=== PATIENT | male | born 1955 | race Caucasian/White ===

== ENCOUNTER 2017-12-19 01:30 | Emergency (ER) | payer SELFPAY ==
[~2017-12-19] VITALS: Ht 182.9 cm; Wt 70.0 kg
[~2017-12-19 01:30] MED LIST: CIPR500T2 PO; CIPR750T10 PO; METR-1 PO; TRAM50 PO
[2017-12-19 01:33] VITALS: BP 97/65; PULSE 66; RESP 18; TEMP 98.1; O2SAT 97
--- NOTE | 2017-12-19 02:39 | RADRPT ---
EXAM DATE/TIME: 12/19/2017 02:19 [place] COMPARISON: No previous studies available for comparison. INDICATIONS : Evaluate for foreign body. Left forearm went through glass. MEDICAL HISTORY : None. SURGICAL HISTORY : None. ENCOUNTER: Initial ACUITY: 1 day PAIN SCORE: 4/10 LOCATION: Left upper extremity FINDINGS: Two view examination of the left forearm demonstrates no evidence of fracture or dislocation. Bony m ineralization is normal. The soft tissue structures are lacerated at the distal forearm CONCLUSION: 1. Soft tissue laceration distal forearm. No fracture. No radiopaque foreign body. Daniel Alaniz MD on December 19, 2017 at 2:37 Board Certified Radiologist. This report was verified electronically.
--- NOTE | 2017-12-19 02:50 | PD ---
HPI Chief Complaint: Laceration/Skin Injury Time Seen by Provider: 02:02 Travel History International Travel<30 days: No Contact w/Intl Traveler<30days: No Traveled to known affect area: No History of Present Illness HPI 62yo M with no significant PMH presents to the ED with left forearm laceration today. Said he had some alcohol and his left arm went through a glass door tonight. Denies any fever, chest pain, sob, head trauma, LOC, n/v, abdominal pain, focal weakness or numbness. Up to date on tetanus. PFSH Past Medical History Cardiovascular Problems: No Diminished Hearing: No Diverticulitis: Yes Genitourinary: No Musculoskeletal: No Neurologic: No Reproductive: No Respiratory: No Tetanus Vaccination: < 5 Years Influenza Vaccination: No PNEUMOCCOCAL Vaccine (Year): 2 Past Surgical History Abdominal Surgery: Yes (colon resecetion) Social History Alcohol Use: No (much alcohol today, otherwise none for 1 yr) Tobacco Use: No Substance Use: No (QUIT 3 MONTHS AGO) Allergies-Medications (Allergen,Severity, Reaction): Coded Allergies: No Known Allergies (Unverified Adverse Reaction, Unknown, 12/19/17) Reported Meds & Prescriptions Reported Meds & Active Scripts Active Ultram (Tramadol HCl) 50 Mg Tab 1 Tab PO Q6HPRN Flagyl (Metronidazole) 500 Mg Tab 1 Tab PO QID Cipro (Ciprofloxacin) 500 Mg Tab 1 Tab PO BID Reported Cipro (Ciprofloxacin) 750 Mg Tab 750 Mg PO BID 7 Days Flagyl (Metronidazole) 500 Mg Tab 500 Mg PO Q8 7 Days Review of Systems Except as stated in HPI: all other systems reviewed are Neg Physical Exam Narrative GENERAL: 62yo M in mild distress. SKIN: Focused skin assessment warm/dry. HEAD: Atraumatic. Normocephalic. CARDIOVASCULAR: Regular rate and rhythm. No murmur appreciated. RESPIRATORY: No accessory muscle use. Clear to auscultation. Breath sounds equal bilaterally. GASTROINTESTINAL: Abdomen soft, non-tender, nondistended. MUSCULOSKELETAL: LUE: +5cm by 3cm mid forearm laceration. Distal pulses intact. Sensation intact. FROM left shoulder, elbow. NEUROLOGICAL: Awake and alert. No obvious cranial nerve deficits. Motor grossly within normal limits. Normal speech. PSYCHIATRIC: Appropriate mood and affect; insight and judgment normal. Data Data Last Documented VS Vital Signs Date Time Temp Pulse Resp B/P (MAP) Pulse Ox O2 Delivery O2 Flow Rate FiO2 12/19/17 01:33 98.1 66 18 97/65 (76) 97 Orders Orders Forearm (2vws) (12/19/17 ) MDM Medical Decision Making Medical Screen Exam Complete: Yes Emergency Medical Condition: Yes Differential Diagnosis Laceration vs. fracture vs. foreign body Narrative Course 62yo M with left forearm laceration s/p left arm through glass door after drinking alcohol and stumbling today. Denies any other injuries. Xray left forearm showed soft tissue laceration distal forearm. No fracture. No radiopaque foreign body. Laceration repair by my PA. Return precautions given. Diagnosis Primary Impression: Laceration of arm Qualified Codes: S41.112A - Laceration without foreign body of left upper arm , initial encounter Patient Instructions: General Instructions Departure Forms: Tests/Procedures Additional Instructions: Please have your sutures remove in 10 days in your primary care physician's office or emergency department. Return to the ED if any signs of infection or concerning symptoms. Med/Other Pt SpecificInfo: Prescription(s) given Scripts Acetaminophen (Tylenol) 325 Mg Tab 650 MG PO Q6H Y for PAIN SCALE 1 TO 4, #20 TAB 0 Refills Prov: Radha Jansen DO 12/19/17 Disposition: 01 DISCHARGE HOME Condition: Stable Radha Jansen DO Dec 19, 2017 02:50
[2017-12-19] MEDS ORDERED: TYLE325T PO (03:18)
--- NOTE | 2017-12-22 19:00 | PD ---
Physical Exam Time Seen by Provider: 18:59 Data Data Last Documented VS Vital Signs Date Time Temp Pulse Resp B/P (MAP) Pulse Ox O2 Delivery O2 Flow Rate FiO2 12/19/17 01:33 98.1 66 18 97/65 (76) 97 Orders Orders Forearm (2vws) (12/19/17 ) Ed Discharge Order (12/19/17 03:19) MDM Medical Record Reviewed: Yes Supervised Visit with [facility]: No Procedures Procedure Narrative LACERATION LOCATION: Left forearm LENGTH: 5 cm NUMBER OF STITCHES/JENNIFER: 5 horizontal mattress REPAIR: The area of the laceration was prepped with Betadine and sterilely draped. The laceration was infiltrated with 1% lidocaine with epinephrine. The wound was copiously irrigated and explored without evidence of foreign body , tendon injury or neurovascular injury. The wound was closed using 4-0 Prolene suture. This was a single layer repair. A sterile dressing was applied. The patient was advised to keep the dressing clean and dry. Patient tolerated the procedure well. Diagnosis Primary Impression: Laceration of arm Patient Instructions: General Instructions Departure Forms: Tests/Procedures Additional Instruction: Please have your sutures remove in 10 days in your primary care physician's office or emergency department. Return to the ED if any signs of infection or concerning symptoms. Scripts Acetaminophen (Tylenol) 325 Mg Tab 650 MG PO Q6H Y for PAIN SCALE 1 TO 4, #20 TAB 0 Refills Prov: Radha Jansen DO 12/19/17 Disposition: 01 DISCHARGE HOME Condition: Stable MurrayAdriana LAO Dec 22, 2017 19:00
== END 2017-12-19 03:30 | disposition home or self-care (01) ==
LOC: NEPC 01:30
DX: S51.812A Laceration without foreign body of left forearm, initial encounter (principal); W22.09XA Striking against other stationary object, initial encounter; W25.XXXA Contact with sharp glass, initial encounter; Y92.009 Unspecified place in unspecified non-institutional (private) residence as the place of occurrence of the external cause
CPT/HCPCS: 12002; 73090; 99283